=== PATIENT | male | born 1980 | race Caucasian/White ===

== ENCOUNTER 2017-12-07 18:48 | Emergency (ER) | payer BC ==
[2017-12-07 19:05] VITALS: BP 135/69; PULSE 65; TEMP 98.1; BMI 35.9
--- NOTE | 2017-12-07 19:27 | PDOC ---
History of Present Illness - History of Present Illness Initial Comments: 12/07/17 20:22 The patient is a 37 year old male, with no significant past medical history, who presents to the emergency department with nasal congestion, frontal pressure -like headache, generalized weakness, numbness to bilateral hands, and constipation. The patient states he has sinus congestion and pressure to his forehead for a couple of days. He reports light exacerbates his headache. The patient also reportedly felt nauseous at the start of his symptoms a couple days ago and forced himself to vomit. He denies vomiting since. He states his bowel movements have been decreased, going every 3 to 4 days. He reports some mild, intermittent, abdominal pain. 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 He denies chest pain, shortness of breath, and dizziness. He denies fever, chills, diarrhea and constipation. He denies dysuria, frequency, urgency and hematuria. Allergies: NKDA <Anel Powell - Last Filed: 12/07/17 20:22> <Rachael Eric - Last Filed: 12/07/17 22:20> - General Chief Complaint: Weakness Stated Complaint: WEAKNESS/PAIN Time Seen by Provider: 12/07/17 19:23 Past History <Anel Powell - Last Filed: 12/07/17 20:22> - Suicide/Smoking/Psychosocial Hx Smoking History: Never smoked <Rachael Eric - Last Filed: 12/07/17 22:20> - Past Medical History Allergies/Adverse Reactions: Allergies Allergy/AdvReac Type Severity Reaction Status Date / Time No Known Allergies Allergy Verified 12/07/17 21:03 Home Medications: Ambulatory Orders NK [No Known Home Medication] 12/07/17 Review of Systems - Review of Systems Able to Perform ROS?: Yes Comments:: 12/07/17 20:22 GENERAL/CONSTITUTIONAL: (+) generalized weakness. No fever or chills. HEAD, EYES, EARS, NOSE AND THROAT: (+) nasal congestion. Frontal pressure headache. No change in vision. No ear pain or discharge. No sore throat. CARDIOVASCULAR: No chest pain or shortness of breath. RESPIRATORY: No cough, wheezing, or hemoptysis. GASTROINTESTINAL: (+) constipation, intermittent abdominal pain, mild nausea with vomit x 1. No diarrhea GENITOURINARY: No dysuria, frequency, or change in urination. MUSCULOSKELETAL: No joint or muscle swelling or pain. No neck or back pain. SKIN: No rash NEUROLOGIC: (+) frontal pressure headache, numbness to bilateral hands. No vertigo, loss of consciousness, or change in strength ENDOCRINE: No increased thirst. No abnormal weight change. HEMATOLOGIC/LYMPHATIC: No anemia, easy bleeding, or history of blood clots. ALLERGIC/IMMUNOLOGIC: No hives or skin allergy. <Anel Powell - Last Filed: 12/07/17 20:22> *Physical Exam - Vital Signs Last Vital Signs Temp Pulse Resp BP Pulse Ox 98.1 F 65 18 135/69 99 12/07/17 18:59 12/07/17 18:59 12/07/17 18:59 12/07/17 18:59 12/07/17 18:59 - Physical Exam Comments: 12/07/17 20:24 GENERAL: Awake, alert, and fully oriented, in no acute distress HEAD: No signs of trauma EYES: PERRLA, EOMI, sclera anicteric, conjunctiva clear ENT: Auricles normal inspection, hearing grossly normal, nares patent, oropharynx clear without exudates. Moist mucosa NECK: Normal ROM, supple, no lymphadenopathy, JVD, or masses LUNGS: Breath sounds equal, clear to auscultation bilaterally. No wheezes, and no crackles HEART: Regular rate and rhythm, normal S1 and S2, no murmurs, rubs or gallops ABDOMEN: Soft, nontender, normoactive bowel sounds. No guarding, no rebound. No masses EXTREMITIES: Normal range of motion, no edema. No clubbing or cyanosis. No cords, erythema, or tenderness NEUROLOGICAL: Cranial nerves II through XII grossly intact. Normal speech, normal gait SKIN: (+)Warm to touch., Dry, normal turgor, no rashes or lesions noted. <Anel Powell - Last Filed: 12/07/17 20:22> - Vital Signs Last Vital Signs Temp Pulse Resp BP Pulse Ox 98.1 F 65 18 135/69 99 12/07/17 18:59 12/07/17 18:59 12/07/17 18:59 12/07/17 18:59 12/07/17 18:59 <Rachael Eric - Last Filed: 12/07/17 22:20> ED Treatment Course - LABORATORY CBC & Chemistry Diagram: 12/07/17 20:29 12/07/17 20:29 <Rachael Eric - Last Filed: 12/07/17 22:20> *DC/Admit/Observation/Transfer - Attestations Scribe Attestion: 12/07/17 20:25 Documentation prepared by Anel Powell, acting as medical clerk for Rcahael Eric MD <Anel Powell - Last Filed: 12/07/17 20:22> - Discharge Dispostion Admit: No <Rachael Eric - Last Filed: 12/07/17 22:20> Diagnosis at time of Disposition: Viral URI, Muscle spasms of neck, Trapezius muscle spasm - Discharge Dispostion Disposition: HOME Condition at time of disposition: Improved - Patient Instructions Printed Discharge Instructions: DI for Viral Upper Respiratory Infection -- Adult, DI for Back Spasm
[2017-12-07] MEDS ORDERED: SODIUM CHLORIDE 0.9% 500 ML INFUS.BAG IV ONE (20:07)
[2017-12-07] MEDS ORDERED: KETOROLAC TROMETHAMINE 30 MG/1 ML VIAL IVPUSH ONE (20:07)
[2017-12-07] MEDS ORDERED: LACTULOSE 20 GM/30 ML UDC (FOR ORAL USE ONLY) PO ONE (20:08)
[2017-12-07] MEDS ORDERED: KETOROLAC TROMETHAMINE 30 MG/1 ML VIAL ONE (20:36)
[2017-12-07] MEDS ORDERED: LACTULOSE 20 GM/30 ML UDC (FOR ORAL USE ONLY) ONE (20:36)
[2017-12-07 21:18] LABS: BASO % 0.7 % (0-2.0); EOS % 9.6 % (0-4.5); HEMATOCRIT 41.1 % (35.4-49); HEMOGLOBIN 13.3 GM/dL (11.7-16.9); LYMPH % 32.9 % (8-40); MCH 27.2 pg (25.7-33.7); MCHC 32.2 g/dl (32.0-35.9); MEAN CELL VOLUME 84.3 fl (80-96); MEAN PLT VOLUME 8.9 fl (7.5-11.1); MONO % 7.1 % (3.8-10.2); NEUT % 49.7 % (42.8-82.8); PLATELET COUNT 258 K/MM3 (134-434); RBC 4.88 M/mm3 (4.00-5.60); RDW 14.7 % (11.9-15.9); WHITE BLOOD COUNT 7.4 K/mm3 (4.0-10.0)
[2017-12-07 21:49] LABS: ALBUMIN 3.8 g/dl (3.4-5.0); ALK PHOS 65 U/L (45-117); ANION GAP 8 (8-16); BILIRUBIN,TOTAL 0.2 mg/dL (0.2-1.0); BLOOD UREA NITROGEN 7 mg/dL (7-18); CHLORIDE 106 mmol/L (98-107); CO2 28 mmol/L (21-32); CREATININE 0.8 mg/dL (0.7-1.3); GLUCOSE,RANDOM 91 mg/dL (74-106); POTASSIUM 4.3 mmol/L (3.5-5.1); SGOT/AST 25 U/L (15-37); SGPT/ALT 37 U/L (12-78); SODIUM 142 mmol/L (136-145); TOT PROT 7.4 g/dl (6.4-8.2)
== END 2017-12-07 22:37 | disposition home or self-care (01) ==
LOC: JER 18:48
PROC: 3E0333Z Introduction of Anti-inflammatory into Peripheral Vein, Percutaneous Approach (ICD-10-PCS; principal; 2017-12-07)
DX: J06.9 Acute upper respiratory infection, unspecified (principal); B97.89 Other viral agents as the cause of diseases classified elsewhere; M62.838 Other muscle spasm
CPT/HCPCS: 36415; 80053; 85025; 87804; 99284-25

== ENCOUNTER 2021-03-27 23:11 | Emergency (ER) | payer BC ==
[2021-03-27 23:24] VITALS: BMI 33.0
[2021-03-27] MEDS ORDERED: SODIUM CHLORIDE 1,000 ML IV STA (23:35)
[2021-03-27] MEDS ORDERED: ACETAMINOPHEN 500 MG TABLET (FP) PO ONE (23:35)
[2021-03-27] MEDS ORDERED: ACETAMINOPHEN INJECTION 100 ML IVPB ONE (23:38)
[2021-03-28 00:01] LABS: BASO % 0.8 % (0-2.0); EOS % 2.1 % (0-4.5); HEMOGLOBIN 12.6 GM/dL (11.7-16.9); MCH 27.8 pg (25.7-33.7); MCHC 33.1 g/dl (32.0-35.9); MEAN PLT VOLUME 8.8 fl (7.5-11.1); MONO % 2.2 % (3.8-10.2); NEUT % 86.9 % (42.8-82.8); PLATELET COUNT 171 K/MM3 (134-434); RBC 4.52 M/mm3 (4.00-5.60); RDW 14.9 % (11.9-15.9); WHITE BLOOD COUNT 6.7 K/mm3 (4.0-10.0)
[2021-03-28 00:21] LABS: INR 1.31 (0.83-1.09); PROTHROMBIN TIME (PATIENT) 15.7 SEC (9.7-13.0)
[2021-03-28 00:23] LABS: ACTIVATED PTT 25.3 SECONDS (25.2-36.5)
[2021-03-28 00:25] LABS: CHLORIDE 110 mmol/L (98-107); SODIUM 140 mmol/L (136-145)
[2021-03-28 00:29] LABS: ALBUMIN 3.4 g/dl (3.4-5.0); ANION GAP 8 MMOL/L (8-16); BLOOD UREA NITROGEN 12.5 mg/dL (7-18); CALCIUM 8.5 mg/dL (8.5-10.1); CO2 23 mmol/L (21-32); GLUCOSE,RANDOM 112 mg/dL (74-106)
[2021-03-28 00:32] LABS: BILIRUBIN,DIRECT 0.3 mg/dL (0.0-0.2); CREATININE 0.9 mg/dL (0.55-1.3); SGOT/AST 19 U/L (15-37); SGPT/ALT 27 U/L (13-61)
[2021-03-28 00:34] LABS: BILIRUBIN,TOTAL 1.2 mg/dL (0.2-1); LACTIC ACID 2.1 mmol/L (0.4-2.0); LDH 165 U/L (87-246); TOT PROT 6.4 g/dl (6.4-8.2)
[2021-03-28 00:35] LABS: ALK PHOS 68 U/L (45-117)
[2021-03-28 03:51] LABS: EPI CELLS >36 /uL (0-25.1); HYALINE CASTS 20 /uL (0-3.1); PH,URINE 5.5 (5.0-8.0); URINE APPEARANCE CLEAR; URINE BACTERIA 15 /uL (0-1359); URINE BILIRUBIN NEGATIVE (NEGATIVE); URINE COLOR YELLOW; URINE GLUCOSE (UA) NEGATIVE (NEGATIVE); URINE KETONE 1+ (NEGATIVE); URINE LEUK ESTERASE 1+ (NEGATIVE); URINE NITRITE NEGATIVE (NEGATIVE); URINE PROTEIN TRACE (NEGATIVE); URINE RBC 8 /uL (0-23.9); URINE WBC 329 /uL (0-25.8)
[2021-03-28] MEDS ORDERED: CEPHALEXIN MONOHYDRATE 500 MG CAPSULE (UD) PO ONE (05:12)
[2021-03-28] MEDS ORDERED: CEPHALEXIN MONOHYDRATE 500 MG CAPSULE (UD) ONE (05:27)
[2021-03-28 05:39] VITALS: BP 108/74; PULSE 94; TEMP 97.7
== END 2021-03-28 06:33 | disposition home or self-care (01) ==
LOC: JER 23:11
PROC: 3E0337Z Introduction of Electrolytic and Water Balance Substance into Peripheral Vein, Percutaneous Approach (ICD-10-PCS; principal; 2021-03-27)
DX: R50.9 Fever, unspecified (principal); R00.0 Tachycardia, unspecified; R06.02 Shortness of breath; M79.10 Myalgia, unspecified site; N39.0 Urinary tract infection, site not specified
CPT/HCPCS: 36415; 71045-TC-FY; 71275-TC; 74177-TC; 80053; 81003; 82248; 82550; 82553; 82728; 83605; 83615; 84484; 85025; 85379; 85610; 85730; 86140; 87040; 87086; 87804; 93005; 93010; 99284-25; C9803; Q9967; U0003; U0005